=== PATIENT | male | born 1955 | race Hispanic/Latino ===

== ENCOUNTER 2020-10-05 16:36 | Emergency (ER) | payer MEDICARE, OTHER ==
[~2020-10-05 16:36] MED LIST: Iopamidol 370 76% 100 ML VIAL ONE
--- NOTE | 2020-10-05 16:52 | CT ---
Exam: Head CT without contrast HISTORY: Stroke. Slurred speech. COMPARISON: 12/03/2012 FINDINGS: Hemorrhage: No intraparenchymal hemorrhage or extra-axial hematoma. Brain parenchyma: Cortical ruth-white matter differentiation is preserved. No mass effect or midline shift. Basilar cisterns are patent. Ventricular system: Ventricles and sulci are patent and symmetric. Calvarium: Intact. Sinuses and mastoid air cells: Adequate aeration. IMPRESSION: No acute intracranial process. Results study discussed with Dr. Stinson 10/05/2020 at 4:48 PM Code CR
[2020-10-05 16:53] LABS: #Basophils 0.1 thou/uL (0.0-0.2); #Eosinphils 0.1 thou/uL (0.0-0.7); #Lymphocytes 1.3 thou/uL (1.20-3.40); #Monocytes 0.4 thou/uL (0.11-0.59); #Neutrophils 8.1 thou/uL (1.40-6.50); %Basophils 0.7 % (0.0-1.0); %Eosinophils 0.7 % (0.0-10.0); %Lymphocytes 12.9 % (21.0-51.0); %Monocytes 3.5 % (0.0-10.0); %Neutrophils 82.2 % (42.0-75.0); Hemoglobin 15.8 g/dL (14.0-18.0); Mean Corpuscular HGB CONC 31.7 g/dL (32.0-36.0); Mean Corpuscular Hemoglobin 31.4 pg (27.0-31.0); Mean Platelet Volume 6.9 fL (7.4-10.4); Platelet Count 275 thou/uL (130-400); RBC Distribution Width 12.4 % (11.5-14.5); Red Blood Cell (RBC) Count 5.02 mill/uL (4.70-6.10); White Blood Cell (WBC) Count 9.8 thou/uL (4.8-10.8)
[2020-10-05 16:59] LABS: INR-International Normal Ratio 1.1; PTT 40.5 sec (22.9-36.1); Prothrombin Time 14.2 sec (12.0-14.7)
[2020-10-05 17:04] LABS: ALT (SGPT) 90 U/L (8-55); AST (SGOT) 51 U/L (5-34); Albumin 3.9 g/dL (3.4-4.8); Alkaline Phosphatase 142 U/L (40-110); Anion Gap 15 mmol/L (10-20); BUN (Urea Nitrogen) 14 mg/dL (8.4-25.7); Bilirubin, Total 0.5 mg/dL (0.2-1.2); Calc. Creatinine Clearance 0 mL/min (70-130); Calcium 9.3 mg/dL (7.8-10.44); Carbon Dioxide 26 mmol/L (23-31); Chloride 97 mmol/L (98-107); Globulin 3.4 g/dL (2.4-3.5); Potassium 4.3 mmol/L (3.5-5.1); Protein, Total 7.3 g/dL (5.8-8.1); Sodium 134 mmol/L (136-145)
[2020-10-05 17:05] LABS: Glucose 227 mg/dL (80-115)
[2020-10-05 17:15] LABS: CK (CPK) 130 U/L (30-200)
--- NOTE | 2020-10-05 17:21 | CT ---
CT angiogram head CT angiogram neck: 10/05/2020 COMPARISON: None HISTORY: Slurred speech, altered mental status, acute stroke patient TECHNIQUE: Axial CT imaging at 3.75 mm intervals from the vertex through the lung apices with IV cont rast using CT angiogram protocol. Coronal and sagittal 3-D reformatted imaging obtained. 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 The [employer] imaging demonstrates patchy increased density in the perihilar regions and both lung bases which could signify infectious pneumonitis or volume loss. The imaged paranasal sinuses and mastoid air cells demonstrate no acute findings. There is polypoid m ucosal thickening involving the alveolar recess of the right maxillary sinus. The retroantral fat and the parapharyngeal fat appears clear bilaterally. The submandibular glands and the parotid glands are unremarkable bilaterally. No lymphadenopathy is seen in the neck. Limited assessment of the aerodigestive tract appears grossly unremarkable. There is circumferential atherosclerotic calcification at the origin of the left subclavian artery wi th no significant associated stenosis. The origin of the left common carotid artery, innominate artery, right common carotid artery, and right vertebral artery demonstrate no acute findings. The ri ght common carotid artery is tortuous proximally and there is mild stenosis at the origin of the right common carotid artery. On the basis of NASCET criteria there is no hemodynamically significant stenosis involving the internal or common carotid artery on the right. There is circumferential noncalcified plaque involving the distal left CCA with mild associated steno sis. There is calcified plaque within the proximal left ICA. On the basis of NASCET criteria there is no hemodynamically significant stenosis involving the left internal or left common carotid artery. There is mild stenosis suspected at the origin of the left vertebral artery. Bilateral vertebral [place] demonstrate no hemodynamically significant stenosis. The basilar artery and its branches appear patent. No high-grade stenosis, vascular occlusion, or sac cular aneurysm is seen involving the posterior circulation. The bifurcation of the internal carotid artery, the M1 segment, the A1 segment, the MCA bifurcation, the distal HEATHER branches, and the distal MCA branches demonstrate no acute findings on either side. No saccular aneurysm, high-grade stenosis, or vascular occlusion is seen involving the anterior circu lation. Review of the osseous structures demonstrates degenerative change at the atlantoaxial interspace. There is multilevel cervical spine disc space narrowing with anterior and posterior osteo phyte formation as well as multilevel bilateral facet and uncovertebral osteophyte formation within the cervical spine. IMPRESSION: No arterial occlusion or high-grade stenosis involving the intracranial arterial structur es. No hemodynamically significant stenosis within the common carotid or internal carotid artery on the basis of NASCET criteria. Patchy opacity in the perihilar regions and both lung bases on the dolly pusher radiograph. Results called to Dr. Stinson 5:15 PM 10/05/2020.
[2020-10-05] MEDS ORDERED: cefTRIAXone\\ROCEPHIN 2 GM VIAL ONE (17:30)
[2020-10-05] MEDS ORDERED: Sodium Chloride 0.9% 200 ML ONE (17:31)
[2020-10-05] MEDS ORDERED: Azithromycin 500 MG VIAL ONE (17:31)
--- NOTE | 2020-10-05 17:31 | RAD ---
Portable frontal chest radiograph: 10/05/2020 COMPARISON: None HISTORY: Difficulty speaking, slurred speech, possible stroke FINDINGS: Nonspecific increased density noted in the perihilar regions and both lung bases with bibas ilar and perihilar airspace disease. There appears to be gaseous distention of the stomach, not optimally assessed on this exam. No pneumothorax is noted. IMPRESSION: Significant interstitial and alveolar opacity within the perihilar regions and both lung bases. Findings could be related to edema, infectious pneumonitis, and/or aspiration. Covid pneumonia in the proper clinical setting cannot be excluded. There appears to be significant gaseous distention of the stomach.
[2020-10-05 17:33] LABS: Bilirubin Negative (Negative); Blood, Urine Negative (Negative); Clarity Clear (Clear); Glucose, Urine (Dipstick) Negative (Negative); Ketone, Urine Negative (Negative); Leukocyte Negative (Negative); Nitrite Negative (Negative); Protein, Urine (Dipstick) Negative (Neg-Trace); Urobilinogen 0.2 mg/dL (Less than 2)
== END 2020-10-05 19:37 | disposition home or self-care (01) ==
LOC: NAV ERS 16:36
DX: R41.82 Altered mental status, unspecified (principal); G12.21 Amyotrophic lateral sclerosis; J18.9 Pneumonia, unspecified organism; R09.02 Hypoxemia; I10 Essential (primary) hypertension; Z87.891 Personal history of nicotine dependence; Z79.899 Other long term (current) drug therapy; R14.0 Abdominal distension (gaseous); M24.575 Contracture, left foot; M24.574 Contracture, right foot
CPT/HCPCS: 51702; 70450; 70496; 71045; 80053; 81003; 82550; 83605; 84484; 85025; 85610; 85730; 87149; 93005; 94760; 96365; 96367; J0456; J0696; J3490; Q9967